=== PATIENT | female | born 1945 | race Caucasian/White ===

== ENCOUNTER 2017-04-27 08:21 | Emergency (ER) | payer OTHER ==
[2017-04-27 08:28] VITALS: BP 169/86; PULSE 72; RESP 21; TEMP 98.3; O2SAT 98
--- NOTE | 2017-04-27 09:48 | ED PDOC ---
HPI: Back Time Seen by Provider: 04/27/17 09:00 Chief Complaint (Nursing): Back Pain Chief Complaint (Provider): Back pain History Per: Patient History/Exam Limitations: no limitations Onset/Duration Of Symptoms: Days (x14) Current Symptoms Are (Timing): Still Present Previous Symptoms: Back Pain Additional Complaint(s): Love Tabor is a 71 year old female with a past medical history of hypertension and gallstones, who is presenting to the ER with complaints of lower back pain and sciatica onset 2 weeks ago. Patient reports going to urgent care 10 days ago and getting x-rays, where they recommended she see an orthopedist and pain specialist. She states she was given cortisone shots and painkillers to manage pain, but they provided no relief. She denies any fever, numbness, tingling, weakness, urinary or bowel incontinence. Patient offers no other medical complaints at this time. PMD: none provided Past Medical History Reviewed: Historical Data, Nursing Documentation, Vital Signs Vital Signs: Last Vital Signs Temp 98.3 F 04/27/17 08:27 Pulse 72 04/27/17 08:27 Resp 21 04/27/17 08:27 BP 169/86 H 04/27/17 08:27 Pulse Ox 98 04/27/17 08:30 - Medical History PMH: HTN Other PMH: gallstones - Family History Family History: States: Unknown Family Hx - Social History Current smoker - smoking cessation education provided: No Alcohol: None Drugs: Denies - Allergies Allergies/Adverse Reactions: Allergies Allergy/AdvReac Type Severity Reaction Status Date / Time No Known Allergies Allergy Verified 04/27/17 08:33 Review of Systems ROS Statement: Except As Marked, All Systems Reviewed And Found Negative Constitutional: Negative for: Fever Genitourinary Female: Negative for: Incontinence Musculoskeletal: Positive for: Back Pain (lower back, upper buttock region) Neurological: Negative for: Weakness, Numbness, Other (tingling) Physical Exam - Reviewed Nursing Documentation Reviewed: Yes Vital Signs Reviewed: Yes - Physical Exam Appears: Positive for: Non-toxic, No Acute Distress (obese) Head Exam: Positive for: ATRAUMATIC, NORMAL INSPECTION, NORMOCEPHALIC Skin: Positive for: Normal Color, Warm, Dry Eye Exam: Positive for: EOMI, Normal appearance, PERRL Neck: Positive for: Normal, Painless ROM, Supple Cardiovascular/Chest: Positive for: Regular Rate, Rhythm. Negative for: Murmur Respiratory: Positive for: Normal Breath Sounds. Negative for: Respiratory Distress Gastrointestinal/Abdominal: Positive for: Normal Exam, Soft. Negative for: Tenderness Back: Positive for: Normal Inspection. Negative for: L CVA Tenderness, R CVA Tenderness, Vertebral Tenderness Extremity: Positive for: Normal ROM. Negative for: Pedal Edema, Deformity Neurologic/Psych: Positive for: Alert, Oriented. Negative for: Motor/Sensory Deficits - Laboratory Results Result Diagrams: 04/27/17 10:01 04/27/17 10:01 - ECG O2 Sat by Pulse Oximetry: 98 (RA) Pulse Ox Interpretation: Normal Medical Decision Making Medical Decision Making: Time: 9:41 Impression: back pain, acute on chronic Plan: --CT Lumbar Spine --EKG --CMP --CBC Patient has had prior workup and is exhibiting no focal neurological deficits. Will administer pain meds and reevaluate patient. Lumbar CT: FINDINGS: VERTEBRAE: Normal lumbar curvature is appreciate without fracture or spondylolisthesis identified. Incidental minimal compression fracture of the T 11 vertebral body is suspected and is technically of indeterminate age but may be chronic. Clinically correlate. Multilevel thoracolumbar spondylosis appears mild in severity relatively diffuse. Intervertebral disc spaces are normal in height although vacuum disc changes are present at L4-5 and incidentally minimally at T10-11 and T11-12 anteriorly. Visualized prevertebral paraspinal soft tissues appear diffusely unremarkable. DISCS/SPINAL CANAL/NEURAL FORAMINA: A mildly large disc osteophyte complex and facet joint degenerative changes are seen at T11-12 resulting in a mild central canal stenosis incidentally. Limited bilateral neural foraminal stenosis likely at this level as well. No similar stenoses are present at T12-L1. L1-2: Minimal disc bulging is appreciate without stenosis. No disc herniation. Mild facet joint degenerative changes are identified symmetric without neural foraminal stenosis. L2-3: A large circumferential disc osteophyte complex is appreciated with combining with facet joint degenerative changes resulting in moderate to severe central canal stenosis and mild bilateral neural foraminal stenosis. L3-4: A severe degenerative central canal stenosis identified due to a large disc osteophyte complex combining with prominent facet joint degenerative change. Mild degenerative bilateral neural foraminal stenoses are caused by the same etiologies. L4-5: A severe degenerative central canal stenosis identified due to a large disc osteophyte complex combining with gross facet joint degenerative arthropathy with moderate degenerative bilateral neural foraminal stenoses also identified. L5-S1: A limited disc bulge is appreciated abutting the ventral thecal sac without inversion of it and without significant central stenosis resulting. Facet arthropathy appears relatively advanced but also without resulting stenosis. PARASPINAL SOFT TISSUES: Unremarkable. OTHER FINDINGS: None. IMPRESSION: Advanced degenerative central canal stenoses are severe at L3-4 and L4-5 as discussed above with accompanying mild L3-4 and moderate L4-5 neural foraminal stenoses. Degenerative central canal stenosis is moderate to severe to L2-3. No gross disc herniation is appreciated however MRI is more sensitive in evaluation of intervertebral discs. 13:00 Patient is feeling better. able to ambulate with steady gait. instructed to follow up with outpt orthopedics. Given CD and copy of report as requested for outpatient follow up. Scribe Attestation: Documented by Maia Wong, acting as a scribe for Luis Ybarra MD. Provider Scribe Attestation: All medical record entries made by the Scribe were at my direction and personally dictated by me. I have reviewed the chart and agree that the record accurately reflects my personal performance of the history, physical exam, medical decision making, and the department course for this patient. I have also personally directed, reviewed, and agree with the discharge instructions and disposition. Disposition - Clinical Impression Clinical Impression: Back pain, Herniated disc - Patient ED Disposition Is Patient to be Admitted: No Counseled Patient/Family Regarding: Studies Performed, Diagnosis, Need For Followup - Disposition Referrals: [facility] [Outside] Torey Baumann III, MD [Staff Provider] - Disposition: Routine/Home Disposition Time: 11:00 Condition: IMPROVED Additional Instructions: follow up with orthopedist as instructed in 2 days return to the ED with any worsening or concerning symptoms Instructions: Herniated Disc Forms: [employer] (Korean)
[2017-04-27 10:23] LABS: ALB/GLOB RATIO 1.3 (1.0-2.1); ALBUMIN 4.3 g/dL (3.5-5.0); ALT/SGPT 36 U/L (9-52); AST/SGOT 38 U/L (14-36); BLOOD UREA NITROGEN 14 mg/dl (7-17); CALCIUM 9.4 mg/dL (8.4-10.2); GFR AFRICAN-AMERICAN > 60; GFR NON-AFRICAN AMERICAN > 60
[2017-04-27 10:25] LABS: BASO % 0.3 % (0.0-2.0); EOS # 0.1 K/uL (0.0-0.7); EOS % 0.9 % (0.0-4.0); HEMOGLOBIN 15.3 g/dL (12.0-16.0); LYMPH # 1.9 K/uL (1.0-4.3); LYMPH % 26.6 % (20.0-40.0); MEAN CELL VOLUME 84.9 fl (81.0-99.0); MEAN CORPUSCULAR HEMOGLOBIN 28.6 pg (27.0-31.0); MEAN CORPUSCULAR HGB CONC 33.7 g/dL (33.0-37.0); MEAN PLATELET VOLUME 7.9 fl (7.2-11.7); MONO # 0.6 K/uL (0.0-0.8); NEUT # 4.5 K/uL (1.8-7.0); NEUT % 64.2 % (50.0-75.0); NRBC % 0.1 % (0.0-0.0); RBC 5.35 Mil/uL (3.80-5.20)
--- NOTE | 2017-04-27 11:53 | CT ---
PROCEDURE: CT Lumbar Spine without contrast HISTORY: back pain COMPARISON: None. TECHNIQUE: Axial computed tomography images were obtained of the lumbar spine without the use of intravenous contrast. Coronal and sagittal reformatted images were created and reviewed. Radiation dose: Total exam DLP = 1538.13 mGy-cm. This CT exam was performed using one or more of the following dose reduction techniques: Automated exposure control, adjustment of the mA and/or kV according to patient size, and/or use of iterative reconstruction technique. FINDINGS: VERTEBRAE: Normal lumbar curvature is appreciate without fracture or spondylolisthesis identified. Incidental minimal compression fracture of the T 11 vertebral body is suspected and is technically of indeterminate age but may be chronic. Clinically correlate. Multilevel thoracolumbar spondylosis appears mild in severity relatively diffuse. Intervertebral disc spaces are normal in height although vacuum disc changes are present at L4-5 and incidentally minimally at T10-11 and T11-12 anteriorly. Visualized prevertebral paraspinal soft tissues appear diffusely unremarkable. DISCS/SPINAL CANAL/NEURAL FORAMINA: A mildly large disc osteophyte complex and facet joint degenerative changes are seen at T11-12 resulting in a mild central canal stenosis incidentally. Limited bilateral neural foraminal stenosis likely at this level as well. No similar stenoses are present at T12-L1. L1-2: Minimal disc bulging is appreciate without stenosis. No disc herniation. Mild facet joint degenerative changes are identified symmetric without neural foraminal stenosis. L2-3: A large circumferential disc osteophyte complex is appreciated with combining with facet joint degenerative changes resulting in moderate to severe central canal stenosis and mild bilateral neural foraminal stenosis. L3-4: A severe degenerative central canal stenosis identified due to a large disc osteophyte complex combining with prominent facet joint degenerative change. Mild degenerative bilateral neural foraminal stenoses are caused by the same etiologies. L4-5: A severe degenerative central canal stenosis identified due to a large disc osteophyte complex combining with gross facet joint degenerative arthropathy with moderate degenerative bilateral neural foraminal stenoses also identified. L5-S1: A limited disc bulge is appreciated abutting the ventral thecal sac without inversion of it and without significant central stenosis resulting. Facet arthropathy appears relatively advanced but also without resulting stenosis. PARASPINAL SOFT TISSUES: Unremarkable. OTHER FINDINGS: None. IMPRESSION: Advanced degenerative central canal stenoses are severe at L3-4 and L4-5 as discussed above with accompanying mild L3-4 and moderate L4-5 neural foraminal stenoses. Degenerative central canal stenosis is moderate to severe to L2-3. No gross disc herniation is appreciated however MRI is more sensitive in evaluation of intervertebral discs.
--- NOTE | 2017-04-27 14:43 | CARD ---
APPROVED REPORT EKG Measurement Heart [id number] <Conclusion> Normal sinus rhythm Left axis deviation Abnormal ECG
== END 2017-04-27 13:26 | disposition home or self-care (01) ==
LOC: H.ER 08:21
DX: M54.9 Dorsalgia, unspecified (principal); M51.27 Other intervertebral disc displacement, lumbosacral region; G89.29 Other chronic pain; I10 Essential (primary) hypertension; M48.061 Spinal stenosis, lumbar region without neurogenic claudication
CPT/HCPCS: 72131; 80053; 85025; 93005; 96372; 99282; J1885

== ENCOUNTER 2018-04-06 10:11 | Emergency (ER) | payer SELFPAY ==
[2018-04-06 10:24] VITALS: BP 163/83; RESP 17; TEMP 98.3; O2SAT 95
--- NOTE | 2018-04-06 11:38 | ED PDOC ---
HPI: Chest Pain Time Seen by Provider: 04/06/18 10:42 Chief Complaint (Nursing): Chest Pain Chief Complaint (Provider): Chest pain History Per: Patient Additional Complaint(s): 72 yo female, PMH of HTN, Pt to ED for evaluation of epigastric abdominal pain, radiating to her chest x 2 days now. Denies any palpitations, diaphoresis, shortness of breathe, or headache :interpreter deaf [id number]. Pt reports she takes her BP at home and sometimes she notes it to be elevated when she is in pain. Past Medical History Reviewed: Nursing Documentation, Vital Signs Vital Signs: Last Vital Signs Temp 98.3 F 04/06/18 10:23 Pulse 70 04/06/18 10:23 Resp 17 04/06/18 10:23 BP 163/83 H 04/06/18 10:23 Pulse Ox 95 04/06/18 10:23 - Medical History PMH: HTN - Surgical History Surgical History: No Surg Hx - Family History Family History: States: Unknown Family Hx - Living Arrangements Living Arrangements: With Family - Social History Alcohol: Social Drugs: Denies - Home Medications Home Medications: Ambulatory Orders Medication Instructions Recorded Famotidine [Pepcid] 20 mg PO DAILY #20 tab 04/06/18 - Allergies Allergies/Adverse Reactions: Allergies Allergy/AdvReac Type Severity Reaction Status Date / Time No Known Allergies Allergy Verified 04/06/18 10:57 ROSA Risk Score for UA/NSTEMI - ROSA Risk Score Age > 64: NO 3 or more CAD Risk Factors: NO Known CAD (Stenosis greater than 50%): NO Aspirin use in past 7 days: NO Severe Angina: NO EKG ST changes greater than 0.5mm: NO Positive Cardiac Marker: NO ROSA Score: 0 Risk %: 5% Wells Criteria for PE - Wells Criteria for Pulmonary Embolism Clinical Signs and Symptoms of DVT: No P.E is #1 Diagnosis, or Equally Likely: No Heart Rate >100: No Immobilization at least 3 days;Surgery previous 4 weeks: No Previous, objectively diagnosed PE or DVT: No Hemoptysis: No Malignancy w/treatment within 6 months, or palliative: No Total Score: 0 Review of Systems ROS Statement: Except As Marked, All Systems Reviewed And Found Negative Cardiovascular: Positive for: Chest Pain Gastrointestinal: Positive for: Abdominal Pain Physical Exam - Reviewed Nursing Documentation Reviewed: Yes Vital Signs Reviewed: Yes - Physical Exam Appears: Positive for: Well, Non-toxic, No Acute Distress Head Exam: Positive for: ATRAUMATIC, NORMAL INSPECTION, NORMOCEPHALIC Skin: Positive for: Normal Color, Warm, DRY Eye Exam: Positive for: EOMI, Normal appearance, PERRL ENT: Positive for: Normal ENT Inspection Neck: Positive for: Normal, Painless ROM Cardiovascular/Chest: Positive for: Regular Rate, Rhythm Respiratory: Positive for: CNT, Normal Breath Sounds Gastrointestinal/Abdominal: Positive for: Normal Exam, Soft Back: Positive for: Normal Inspection Extremity: Positive for: Normal ROM Neurologic/Psych: Positive for: Alert, Oriented - Laboratory Results Result Diagrams: 04/06/18 12:18 04/06/18 12:18 - ECG O2 Sat by Pulse Oximetry: 95 Medical Decision Making Medical Decision Making: EKG interpreted and cleared by ED MD Pt placed on environmental monitoring specialist, vitals stable Labs resulted and reviewed with Pt who demonstarted full understanding. Pt received Pepcid for her symptoms and reports relif obtained. Pt on re-eval with no complaints of chest pain or SOB. Pt asking to go home, reports she will follow up with clinic. Pt advised to return to ED if at anytime condition worsens Disposition - Clinical Impression Clinical Impression: Chest pain, Gastritis - Patient ED Disposition Is Patient to be Admitted: No - Disposition Referrals: Danny Benson MD [Staff Provider] - Aroldo Herron MD [Staff Provider] - Disposition: Routine/Home Disposition Time: 14:00 Condition: STABLE Prescriptions: Famotidine [Pepcid] 20 mg PO DAILY #20 tab Instructions: Gastritis Forms: [employer] (Nepali)
[2018-04-06 12:28] LABS: BASO % 0.8 % (0.0-2.0); EOS # 0.1 K/uL (0.0-0.7); EOS % 2.1 % (0.0-4.0); HEMOGLOBIN 14.6 g/dL (12.0-16.0); LYMPH # 1.8 K/uL (1.0-4.3); LYMPH % 31.5 % (20.0-40.0); MEAN CELL VOLUME 86.8 fl (81.0-99.0); MEAN CORPUSCULAR HEMOGLOBIN 28.4 pg (27.0-31.0); MEAN CORPUSCULAR HGB CONC 32.8 g/dL (33.0-37.0); MEAN PLATELET VOLUME 8.2 fl (7.2-11.7); MONO # 0.4 K/uL (0.0-0.8); MONO % 7.4 % (0.0-10.0); NEUT # 3.3 K/uL (1.8-7.0); NEUT % 58.2 % (50.0-75.0); NRBC % 0.1 % (0.0-0.0); RBC 5.13 Mil/uL (3.80-5.20); RED CELL DISTRIBUTION WIDTH 13.1 % (11.5-14.5); WHITE BLOOD COUNT 5.7 K/uL (4.8-10.8)
[2018-04-06 12:33] LABS: PROTHROMBIN TIME 11.1 Seconds (9.8-13.1)
[2018-04-06 12:36] LABS: PARTIAL THROMBOPLASTIN TIME 34.9 Seconds (25.6-37.1); SQUAMOUS EPITHIAL 8 /hpf (0-5); URINE BACTERIA RARE (<OCC); URINE BILIRUBIN NEGATIVE (NEGATIVE); URINE BLOOD NEGATIVE (NEGATIVE); URINE CLARITY CLOUDY (Clear); URINE COLOR YELLOW (YELLOW); URINE GLUCOSE (UA) NEG (NEGATIVE); URINE LEUKOCYTE ESTERASE SMALL Leu/uL (Negative); URINE PROTEIN NEGATIVE (NEGATIVE); URINE UROBILINOGEN 0.2-1.0 mg/dL (0.2-1.0)
[2018-04-06 12:50] LABS: ALB/GLOB RATIO 1.5 (1.0-2.1); ALBUMIN 4.7 g/dL (3.5-5.0); ALT/SGPT 27 U/L (9-52); AST/SGOT 38 U/L (14-36); BLOOD UREA NITROGEN 19 mg/dl (7-17); CALCIUM 9.6 mg/dL (8.4-10.2); GFR NON-AFRICAN AMERICAN > 60
[2018-04-06 14:26] VITALS: PULSE 63
--- NOTE | 2018-04-06 14:32 | RAD ---
Date of service: 04/06/2018 PROCEDURE: CHEST RADIOGRAPH, 1 VIEW HISTORY: Chest pain. COMPARISON: 10/31/2017. FINDINGS: LUNGS: Clear. PLEURA: No pneumothorax or pleural fluid seen. CARDIOVASCULAR: No aortic atherosclerotic calcification present. Normal. OSSEOUS STRUCTURES: No significant abnormalities. VISUALIZED UPPER ABDOMEN: Normal. OTHER FINDINGS: None. IMPRESSION: No active disease. No acute/significant interval changes.
--- NOTE | 2018-04-06 23:49 | CARD ---
APPROVED REPORT Date of service: 04/06/2018 EKG Measurement Heart [id number] <Conclusion> Normal sinus rhythm Left axis deviation Abnormal ECG
== END 2018-04-06 15:45 | disposition home or self-care (01) ==
LOC: H.ER 10:11
DX: R07.89 Other chest pain (principal); K29.70 Gastritis, unspecified, without bleeding; I10 Essential (primary) hypertension

== ENCOUNTER 2018-06-22 10:47 | Observation (INO) | payer SELFPAY ==
[2018-06-22 10:58] VITALS: BMI 37.3
[2018-06-22 12:12] LABS: BASO % 0.7 % (0.0-2.0); EOS # 0.1 K/uL (0.0-0.7); EOS % 2.6 % (0.0-4.0); HEMOGLOBIN 13.1 g/dL (12.0-16.0); LYMPH % 35.3 % (20.0-40.0); MEAN CELL VOLUME 86.7 fl (81.0-99.0); MEAN CORPUSCULAR HEMOGLOBIN 28.9 pg (27.0-31.0); MEAN CORPUSCULAR HGB CONC 33.3 g/dL (33.0-37.0); MEAN PLATELET VOLUME 7.7 fl (7.2-11.7); MONO # 0.5 K/uL (0.0-0.8); MONO % 8.2 % (0.0-10.0); NEUT % 53.2 % (50.0-75.0); RBC 4.54 Mil/uL (3.80-5.20); RED CELL DISTRIBUTION WIDTH 13.2 % (11.5-14.5); WHITE BLOOD COUNT 5.6 K/uL (4.8-10.8)
[2018-06-22 12:20] LABS: PROTHROMBIN TIME 11.4 Seconds (9.8-13.1)
[2018-06-22 12:23] LABS: PARTIAL THROMBOPLASTIN TIME 36.3 Seconds (25.6-37.1)
--- NOTE | 2018-06-22 12:28 | ED PDOC ---
Syncope/Near Syncope/Dizziness Time Seen by Provider: 06/22/18 11:01 Chief Complaint (Nursing): Syncope Chief Complaint (Provider): Syncope History Per: Patient History/Exam Limitations: no limitations Onset/Duration Of Symptoms: Hrs Additional Complaint(s): 73 y/o female presents to the ED due to syncope. Patient states she had a syncope episode today after her doctor visit. Patient report when she fainted EMS was called and came here. She states she has been feeling dizzy for the last past 2 days and it progressively worsen when walking. Patient denies chest pain, headache, weakness, or any numbness to her face. PMD: [facility] Past Medical History Reviewed: Historical Data, Nursing Documentation, Vital Signs Vital Signs: Last Vital Signs Temp 97 F L 06/22/18 10:57 Pulse 75 06/22/18 10:57 Resp 16 06/22/18 10:57 BP 186/101 H 06/22/18 10:57 Pulse Ox 96 06/22/18 10:57 Primary Care Provider: Doctor,Conversion - Medical History PMH: HTN, Hypercholesterolemia - Family History Family History: States: Unknown Family Hx - Home Medications Home Medications: Ambulatory Orders Medication Instructions Recorded Famotidine [Pepcid] 20 mg PO DAILY #20 tab 04/06/18 - Allergies Allergies/Adverse Reactions: Allergies Allergy/AdvReac Type Severity Reaction Status Date / Time No Known Allergies Allergy Verified 06/22/18 10:57 Review of Systems ROS Statement: Except As Marked, All Systems Reviewed And Found Negative Cardiovascular: Negative for: Chest Pain Neurological: Positive for: Dizziness. Negative for: Weakness, Numbness, Headache Physical Exam - Reviewed Nursing Documentation Reviewed: Yes Vital Signs Reviewed: Yes - Physical Exam Appears: Positive for: Well, Non-toxic, No Acute Distress Head Exam: Positive for: ATRAUMATIC, NORMAL INSPECTION, NORMOCEPHALIC Skin: Positive for: Normal Color, Warm, DRY Eye Exam: Positive for: EOMI, Normal appearance, PERRL ENT: Positive for: Normal ENT Inspection Neck: Positive for: Normal, Painless ROM, Supple Cardiovascular/Chest: Positive for: Regular Rate, Rhythm. Negative for: Murmur Respiratory: Positive for: Normal Breath Sounds. Negative for: Wheezing Gastrointestinal/Abdominal: Positive for: Normal Exam, Soft. Negative for: Tenderness Back: Positive for: Normal Inspection. Negative for: L CVA Tenderness, R CVA Tenderness Extremity: Positive for: Normal ROM Neurological/Psych: Positive for: Awake, Alert, Normal Tone, Oriented (x3). Negative for: Motor/Sensory Deficits - Laboratory Results Result Diagrams: 06/22/18 12:00 06/22/18 12:00 Lab Results: PT 11.4 Seconds (9.8-13.1) 06/22/18 12:00 INR 1.0 06/22/18 12:00 APTT 36.3 Seconds (25.6-37.1) 06/22/18 12:00 - ECG O2 Sat by Pulse Oximetry: 96 Medical Decision Making Medical Decision Making: Time: 1142 Implementation Coordinator #: [id number] Initial Impression: Initial Plan: -CT -EKG -BNP -CMP -Magnesium -Phosphorous -Troponin -CBC -Partial thromboplastin -Prothrombin -Chest x-ray -Urinalysis -Xanax 0.25mg PO 12:00 Patient states she gets very nervous for CT, will give Xanax. [address] unremarkable Pt to be admitted under the hospitalist. She has been informed and agrees with the plan. Scribe Attestation: Documented by Georgina Pack, acting as a scribe for Sameera Gatica Provider Scribe Attestation: All medical record entries made by the Scribe were at my direction and personally dictated by me. I have reviewed the chart and agree that the record accurately reflects my personal performance of the history, physical exam, medical decision making, and the department course for this patient. I have also personally directed, reviewed, and agree with the discharge instructions and disposition. Disposition - Clinical Impression Clinical Impression: Syncope and collapse - Disposition Disposition Time: 14:00 Condition: STABLE Forms: [employer] (Albanian)
[2018-06-22 12:31] LABS: ALB/GLOB RATIO 1.5 (1.0-2.1); ALBUMIN 4.1 g/dL (3.5-5.0); ALT/SGPT 28 U/L (9-52); AST/SGOT 33 U/L (14-36); BLOOD UREA NITROGEN 16 mg/dl (7-17); CALCIUM 8.6 mg/dL (8.4-10.2); GFR NON-AFRICAN AMERICAN > 60
[2018-06-22 12:38] LABS: B-TYPE NATRIURETIC PEPTIDE 112 pg/ml (0-900)
--- NOTE | 2018-06-22 13:00 | CT ---
Date of service: 06/22/2018 PROCEDURE: CT HEAD WITHOUT CONTRAST. HISTORY: syncope COMPARISON: None available. TECHNIQUE: Axial computed tomography images were obtained through the head/brain without intravenous contrast. Radiation dose: Total exam DLP = 789.18 mGy-cm. This CT exam was performed using one or more of the following dose reduction techniques: Automated exposure control, adjustment of the mA and/or kV according to patient size, and/or use of iterative reconstruction technique. FINDINGS: HEMORRHAGE: No intracranial hemorrhage. BRAIN: Small chronic infarct left parietal occipital junction. Limited diffuse cerebral atrophy and chronic microangiopathy are manifest by minimal expansion of the ventricular sulcal and cisternal spaces and minimal periventricular white matter lucency. No mass effect. No suspicious extra-axial collection identified. Midline brain and appears normal as well as posterior fossa contents, including brainstem. VENTRICLES: Unremarkable. No hydrocephalus. CALVARIUM: Unremarkable. PARANASAL SINUSES: Unremarkable as visualized. No significant inflammatory changes. MASTOID AIR CELLS: Unremarkable as visualized. No inflammatory changes. OTHER FINDINGS: None. 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
--- NOTE | 2018-06-22 13:31 | CARD ---
APPROVED REPORT Date of service: 06/22/2018 EKG Measurement Heart [id number] <Conclusion> Sinus rhythm with occasional premature ventricular complexes Otherwise normal ECG
--- NOTE | 2018-06-22 15:06 | RAD ---
Date of service: 06/22/2018 HISTORY: Possible admission. COMPARISON: 04/06/2018. FINDINGS: LUNGS: No active pulmonary disease. PLEURA: No significant pleural effusion identified, no pneumothorax apparent. CARDIOVASCULAR: Atherosclerotic calcifications identified primarily aortic arch. No radiographic findings to suggest acute or significant cardiovascular disease. OSSEOUS STRUCTURES: No significant abnormalities. VISUALIZED UPPER ABDOMEN: Normal. OTHER FINDINGS: None. IMPRESSION: No active disease. No significant interval change compared to the prior examination(s).
--- NOTE | 2018-06-22 15:33 | CP.PCM.HP ---
<Dorie Rodriguez - Last Filed: 06/22/18 15:48> History of Present Illness - History of Present Illness History of Present Illness: 73-year-old female with PMH of HTN presents from [facility] after a pre-syncopal episode. She was sitting in the examination room alone and began to feel "foggy" - no loss of consciousness, no dizziness, no diaphoresis, no headache, no palpitations, no change in vision, no weakness, no tingling/numbness. She admits that the fogginess has been present since summer, last only a few seconds and mostly occur when she is walking and stops at an intersection. Currently no complaints. PMD: HNC PMH: HTN, prediabetes Meds: as below Allergy: NKDA FHx: denies Surgical Hx: tonsilectomy at 17 yo Social: denies tobacco and illicit drugs, social etoh; was a teacher in [employer] Present on Admission - Present on Admission Any Indicators Present on Admission: No Review of Systems - Review of Systems Review of Systems: all other systems reviewed and negative unles snoted in HPI. Past Patient History - Past Social History Smoking Status: Never Smoked - CARDIAC Hx Hypercholesterolemia: Yes Hx Hypertension: Yes - ENDOCRINE/METABOLIC Other/Comment: pre- dm - PSYCHIATRIC Hx Substance Use: No Meds Allergies/Adverse Reactions: Allergies Allergy/AdvReac Type Severity Reaction Status Date / Time No Known Allergies Allergy Verified 06/22/18 10:57 Physical Exam - Constitutional Appears: Non-toxic, No Acute Distress, Younger Than Stated Age - Eye Exam Eye Exam: Normal appearance - ENT Exam ENT Exam: Mucous Membranes Moist - Respiratory Exam Respiratory Exam: Clear to Auscultation Bilateral, NORMAL BREATHING PATTERN. absent: Respiratory Distress - Cardiovascular Exam Cardiovascular Exam: REGULAR RHYTHM - GI/Abdominal Exam GI & Abdominal Exam: Normal Bowel Sounds, Soft. absent: Tenderness - Rectal Exam Rectal Exam: NORMAL INSPECTION - Extremities Exam Extremities exam: Positive for: normal inspection - Neurological Exam Neurological exam: Alert, CN II-XII Intact, Normal Gait, Oriented x3 - Psychiatric Exam Psychiatric exam: Normal Affect, Normal Mood - Skin Skin Exam: Normal Color, Warm Results - Vital Signs Recent Vital Signs: Last Vital Signs Temp 97 F L 06/22/18 10:57 Pulse 75 06/22/18 10:57 Resp 16 06/22/18 10:57 BP 186/101 H 06/22/18 10:57 Pulse Ox 96 06/22/18 14:47 - Labs Result Diagrams: 06/22/18 12:00 06/22/18 12:00 Labs: Laboratory Results - last 24 hr 06/22/18 06/22/18 06/22/18 10:58 12:00 12:00 WBC 5.6 RBC 4.54 Hgb 13.1 Hct 39.3 MCV 86.7 MCH 28.9 MCHC 33.3 RDW 13.2 Plt Count 172 MPV 7.7 Neut % (Auto) 53.2 Lymph % (Auto) 35.3 Cochran % (Auto) 8.2 Eos % (Auto) 2.6 Baso % (Auto) 0.7 Neut # (Auto) 3.0 Lymph # (Auto) 2.0 Cochran # (Auto) 0.5 Eos # (Auto) 0.1 Baso # (Auto) 0.0 PT INR APTT Sodium 138 Potassium 4.0 Chloride 105 Carbon Dioxide 27 Anion Gap 10 BUN 16 Creatinine 0.6 L Est GFR ( Amer) > 60 Est GFR (Non-Af Amer) > 60 POC Glucose (mg/dL) 117 H Random Glucose 105 Calcium 8.6 Phosphorus 3.1 Magnesium 2.1 Total Bilirubin 0.7 AST 33 ALT 28 Alkaline Phosphatase 76 Troponin I < 0.0120 NT-Pro-B Natriuret Pep 112 Total Protein 6.8 Albumin 4.1 Globulin 2.7 Albumin/Globulin Ratio 1.5 06/22/18 12:00 WBC RBC Hgb Hct MCV MCH MCHC RDW Plt Count MPV Neut % (Auto) Lymph % (Auto) Cochran % (Auto) Eos % (Auto) Baso % (Auto) Neut # (Auto) Lymph # (Auto) Cochran # (Auto) Eos # (Auto) Baso # (Auto) PT 11.4 INR 1.0 APTT 36.3 Sodium Potassium Chloride Carbon Dioxide Anion Gap BUN Creatinine Est GFR ( Amer) Est GFR (Non-Af Amer) POC Glucose (mg/dL) Random Glucose Calcium Phosphorus Magnesium Total Bilirubin AST ALT Alkaline Phosphatase Troponin I NT-Pro-B Natriuret Pep Total Protein Albumin Globulin Albumin/Globulin Ratio Assessment & Plan - Assessment and Plan (Free Text) Assessment: 73-year-old female with PMH of HTN presents from [facility] after a pre-syncopal episode. She was sitting in the examination room alone and began to feel "foggy" - no loss of consciousness, no dizziness, no diaphoresis, no headache, no palpitations, no change in vision, no weakness, no tingling/numbness. 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3 RDW 13.2 Plt Count 172 MPV 7.7 Neut % (Auto) 53.2 Lymph % (Auto) 35.3 Cochran % (Auto) 8.2 Eos % (Auto) 2.6 Baso % (Auto) 0.7 Neut # (Auto) 3.0 Lymph # (Auto) 2.0 Cochran # (Auto) 0.5 Eos # (Auto) 0.1 Baso # (Auto) 0.0 PT INR APTT Sodium 138 Potassium 4.0 Chloride 105 Carbon Dioxide 27 Anion Gap 10 BUN 16 Creatinine 0.6 L Est GFR ( Amer) > 60 Est GFR (Non-Af Amer) > 60 POC Glucose (mg/dL) 117 H Random Glucose 105 Calcium 8.6 Phosphorus 3.1 Magnesium 2.1 Total Bilirubin 0.7 AST 33 ALT 28 Alkaline Phosphatase 76 Troponin I < 0.0120 NT-Pro-B Natriuret Pep 112 Total Protein 6.8 Albumin 4.1 Globulin 2.7 Albumin/Globulin Ratio 1.5 06/22/18 12:00 WBC RBC Hgb Hct MCV MCH MCHC RDW Plt Count MPV Neut % (Auto) Lymph % (Auto) Cochran % (Auto) Eos % (Auto) Baso % (Auto) Neut # (Auto) Lymph # (Auto) Cochran # (Auto) Eos # (Auto) Baso # (Auto) PT 11.4 INR 1.0 APTT 36.3 Sodium Potassium Chloride Carbon Dioxide Anion Gap BUN Creatinine Est GFR ( Amer) Est GFR (Non-Af Amer) POC Glucose (mg/dL) Random Glucose Calcium Phosphorus Magnesium Total Bilirubin AST ALT Alkaline Phosphatase Troponin I NT-Pro-B Natriuret Pep Total Protein Albumin Globulin Albumin/Globulin Ratio Attending/Attestation - Attestation I have personally seen and examined this patient.: Yes I have fully participated in the care of the patient.: Yes I have reviewed all pertinent clinical information: Yes Notes (Text): 06/22/18 19:20 Agree with findings and plan as above.
--- NOTE | 2018-06-22 18:29 | US ---
Date of service: 06/22/2018 PROCEDURE: Duplex ultrasound of the carotid and vertebral arteries. HISTORY: presyncope/syncope COMPARISON: None available. TECHNIQUE: Grayscale and duplex Doppler evaluation of the cervical carotid and vertebral arteries were performed. The common carotid, carotid bifurcations and cervical ICA and proximal ECA were evaluated. The vertebral arteries were evaluated for gross patency and direction. FINDINGS: RIGHT CAROTID ARTERIES: Common Carotid Artery: Maximal flow velocity of 72.9 cm/s. Carotid Bifurcation: Intimal thickening is present Internal Carotid Artery:Heterogeneous plaque formation. Maximal flow velocity of 57.5 cm/s. External Carotid Artery (proximal branches): Maximal flow velocity of 61.0 cm/s. ICA/CCA Ratio: 1.3 LEFT CAROTID ARTERIES: Common Carotid Artery: Maximal flow velocity of 68.6 cm/s. Carotid Bifurcation: Intimal thickening is present Internal Carotid Artery:Heterogeneous plaque formation. Maximal flow velocity of 55.3 cm/s. External Carotid Artery (proximal branches): Maximal flow velocity of 73.3 cm/s. ICA/CCA Ratio: 1.0 VERTEBRAL ARTERIES: Right Vertebral Artery: Patent. Antegrade flow. Left Vertebral Artery: Patent. Antegrade flow. OTHER FINDINGS: Atherosclerotic calcification present. Morphologically, unremarkable lymph node(s) interposed between the left common carotid artery in the sternocleidomastoid 1 x 1.2 cm. IMPRESSION: Right ICA degree of stenosis: Less than 50% Left ICA degree of stenosis: Less than 50% Reference Internal Carotid Artery (ICA) Peak Systolic Velocity (PSV) for above: 1. Less than 50% stenosis less than 125 cm/s peak systolic velocity 2. 50-69% stenosis 125-230cm/s peak systolic velocity 3. Greater than 70% but less than near occlusion greater than 230 cm/s peak systolic velocity
[2018-06-23 06:29] LABS: HEMOGLOBIN 13.8 g/dL (12.0-16.0); MEAN CELL VOLUME 86.8 fl (81.0-99.0); MEAN CORPUSCULAR HEMOGLOBIN 28.7 pg (27.0-31.0); RBC 4.81 Mil/uL (3.80-5.20); RED CELL DISTRIBUTION WIDTH 13.1 % (11.5-14.5); WHITE BLOOD COUNT 5.8 K/uL (4.8-10.8)
[2018-06-23 06:38] LABS: BLOOD UREA NITROGEN 14 mg/dl (7-17); CALCIUM 8.6 mg/dL (8.4-10.2); GFR NON-AFRICAN AMERICAN > 60
[2018-06-23 08:31] VITALS: BP 137/87; RESP 20; TEMP 97.7; O2SAT 96
[2018-06-23 08:41] VITALS: PULSE 64
[2018-06-23] MEDS ORDERED: Metoprolol Succinate 50 mg XL Tab PO SCH (09:00)
--- NOTE | 2018-06-23 09:56 | CP.PCM.PN ---
Subjective - Date & Time of Evaluation Date of Evaluation: 06/23/18 Time of Evaluation: 09:05 Objective - Vital Signs/Intake and Output Vital Signs (last 24 hours): Temp Pulse Resp BP Pulse Ox 97.7 F 64 20 137/87 96 06/23/18 08:30 06/23/18 08:41 06/23/18 08:30 06/23/18 08:41 06/23/18 08:30 - Medications Medications: Current Medications Acetaminophen (Tylenol 325mg Tab) 650 mg PO Q6 PRN PRN Reason: Pain, Mild (1-3) Aspirin (Ecotrin) 81 mg PO DAILY [facility] Last Admin: 06/23/18 08:41 Dose: 81 mg Atorvastatin Calcium (Lipitor) 40 mg PO HS [facility] Last Admin: 06/22/18 22:43 Dose: 40 mg Hydrochlorothiazide (Microzide) 12.5 mg PO DAILY [facility] Last Admin: 06/23/18 08:41 Dose: 12.5 mg Losartan Potassium (Cozaar) 100 mg PO DAILY [facility] Last Admin: 06/23/18 08:40 Dose: 100 mg Metoprolol Succinate (Toprol Xl) 50 mg PO DAILY [facility] Last Admin: 06/23/18 08:41 Dose: 50 mg - Labs Labs: 06/23/18 05:04 06/23/18 05:04 PT 11.4 Seconds (9.8-13.1) 06/22/18 12:00 INR 1.0 06/22/18 12:00 APTT 36.3 Seconds (25.6-37.1) 06/22/18 12:00
[2018-06-23 10:38] LABS: SQUAMOUS EPITHIAL 1 /hpf (0-5); URINE BILIRUBIN NEGATIVE (NEGATIVE); URINE BLOOD NEGATIVE (NEGATIVE); URINE CLARITY SLIGHTY-CLOUDY (Clear); URINE COLOR YELLOW (YELLOW); URINE GLUCOSE (UA) NEG (NEGATIVE); URINE LEUKOCYTE ESTERASE MOD Leu/uL (Negative); URINE PROTEIN NEGATIVE (NEGATIVE); URINE UROBILINOGEN 0.2-1.0 mg/dL (0.2-1.0)
[2018-06-23 11:46] LABS: URINE BACTERIA FEW (<OCC)
--- NOTE | 2018-06-23 13:08 | CARD ---
APPROVED REPORT Date of service: 06/23/2018 EXAM: Two-dimensional and M-mode echocardiogram with Doppler and color Doppler. Other Information Quality : AverageRhythm : NSR Technically limited study due to Poor apical window INDICATION Syncope 2D DIMENSIONS IVSd1.32 (0.7-1.1cm)LVDd4.61 (3.9-5.9cm) LVOT Diameter2.26 (1.8-2.4cm)PWd1.11 (0.7-1.1cm) IVSs1.56 (0.8-1.2cm)LVDs2.75 (2.5-4.0cm) FS (%) 40.3 %PWs1.48 (0.8-1.2cm) M-Mode DIMENSIONS Left Atrium (MM)5.21 (2.5-4.0cm)IVSd1.18 (0.7-1.1cm) Aortic Root2.97 (2.2-3.7cm)LVDd5.38 (4.0-5.6cm) Aortic Cusp Exc.1.82 (1.5-2.0cm)PWd1.32 (0.7-1.1cm) IVSs2.03 cmFS (%) 46 % LVDs2.91 (2.0-3.8cm)PWs1.91 cm Aortic Valve AoV Peak Qwbjifwz911.1cm/sAoV VTI21.1cmAO Peak GR.6mmHg LVOT Peak Daseecoj16.2cm/sLVOT VTI17.26cmAO Mean GR.3mmHg ROMÁN (VMAX)1.46gf8AGD (VTI)1.70cm2 Mitral Valve MV E Ayduehpr99.4cm/sMV DECEL WUCO326qyMI A Gqouxfno85.8cm/s MV GCU132ymO/A ratio0.5MVA (PHT)1.72cm2 TDI Lateral E' Peak V6.11cm/sMedial E' Peak V5.46cm/sE/Lateral E'6.0 E/Medial E'6.7 LEFT VENTRICLE The left ventricle is normal size. There is normal left ventricular wall thickness. The left ventricular systolic function is normal. The estimated ejection fraction is 55-60% No regional wall motion abnormalities noted.. Transmitral Doppler flow pattern is Grade I-abnormal relaxation pattern. No left ventricle thrombus noted on this study. There is no ventricular septal defect visualized. There is no left ventricular aneurysm. There is no mass noted in the left ventricle. RIGHT VENTRICLE The right ventricle is normal size. There is normal right ventricular wall thickness. The right ventricular systolic function is normal. ATRIA The left atrium is mild to moderately dilated. The right atrium size is normal. The interatrial septum is intact with no evidence for an atrial septal defect. AORTIC VALVE The aortic valve is normal in structure. No aortic regurgitation is present. There is no aortic valvular stenosis. There is no aortic valvular vegetation. MITRAL VALVE The mitral valve is normal in structure. There is no evidence of mitral valve prolapse. There is no mitral valve stenosis. There is no mitral valve regurgitation noted. TRICUSPID VALVE The tricuspid valve is normal in structure. There is trace tricuspid valve regurgitation noted. RVSP is calculated at less than 20 mm Hg. There is no tricuspid valve prolapse or vegetation. There is no tricuspid valve stenosis. PULMONIC VALVE The pulmonary valve is normal in structure. There is no pulmonic valvular regurgitation. There is no pulmonic valvular stenosis. GREAT VESSELS The aortic root is normal in size. The ascending aorta is normal in size. The pulmonary artery is normal. The IVC is normal in size and collapses >50% with inspiration. PERICARDIAL EFFUSION There is no pericardial effusion. There is no pleural effusion. <Conclusion> The estimated ejection fraction is 55-60% Transmitral Doppler flow pattern is Grade I-abnormal relaxation pattern. The left atrium is mild to moderately dilated. There is trace tricuspid valve regurgitation noted. RVSP is calculated at less than 20 mm Hg.
--- NOTE | 2018-06-23 13:26 | CP.PCM.DIS ---
Provider - Provider Date of Admission: 06/22/18 14:12 Attending physician: Latricia Candelaria DO Time Spent in preparation of Discharge (in minutes): 30 Diagnosis - Discharge Diagnosis (1) Syncope Status: Resolved Priority: Low (2) Hypertension Status: Chronic Priority: Low Hospital Course - Lab Results Lab Results: Most Recent Lab Values WBC 5.8 K/uL (4.8-10.8) 06/23/18 05:04 RBC 4.81 Mil/uL (3.80-5.20) 06/23/18 05:04 Hgb 13.8 g/dL (12.0-16.0) 06/23/18 05:04 Hct 41.8 % (34.0-47.0) 06/23/18 05:04 MCV 86.8 fl (81.0-99.0) 06/23/18 05:04 MCH 28.7 pg (27.0-31.0) 06/23/18 05:04 MCHC 33.0 g/dL (33.0-37.0) 06/23/18 05:04 RDW 13.1 % (11.5-14.5) 06/23/18 05:04 Plt Count 177 K/uL (130-400) 06/23/18 05:04 MPV 7.7 fl (7.2-11.7) 06/22/18 12:00 Neut % (Auto) 53.2 % (50.0-75.0) 06/22/18 12:00 Lymph % (Auto) 35.3 % (20.0-40.0) 06/22/18 12:00 Ada % (Auto) 8.2 % (0.0-10.0) 06/22/18 12:00 Eos % (Auto) 2.6 % (0.0-4.0) 06/22/18 12:00 Baso % (Auto) 0.7 % (0.0-2.0) 06/22/18 12:00 Neut # (Auto) 3.0 K/uL (1.8-7.0) 06/22/18 12:00 Lymph # (Auto) 2.0 K/uL (1.0-4.3) 06/22/18 12:00 Ada # (Auto) 0.5 K/uL (0.0-0.8) 06/22/18 12:00 Eos # (Auto) 0.1 K/uL (0.0-0.7) 06/22/18 12:00 Baso # (Auto) 0.0 K/uL (0.0-0.2) 06/22/18 12:00 PT 11.4 Seconds (9.8-13.1) 06/22/18 12:00 INR 1.0 06/22/18 12:00 APTT 36.3 Seconds (25.6-37.1) 06/22/18 12:00 Sodium 138 mmol/l (132-148) 06/23/18 05:04 Potassium 3.9 MMOL/L (3.6-5.0) 06/23/18 05:04 Chloride 104 mmol/L (98-107) 06/23/18 05:04 Carbon Dioxide 24 mmol/L (22-30) 06/23/18 05:04 Anion Gap 14 (10-20) 06/23/18 05:04 BUN 14 mg/dl (7-17) 06/23/18 05:04 Creatinine 0.6 mg/dl (0.7-1.2) L 06/23/18 05:04 Est GFR ( Amer) > 60 06/23/18 05:04 Est GFR (Non-Af Amer) > 60 06/23/18 05:04 POC Glucose (mg/dL) 117 mg/dL (65-110) H 06/22/18 10:58 Random Glucose 100 mg/dL (65-105) 06/23/18 05:04 Calcium 8.6 mg/dL (8.4-10.2) 06/23/18 05:04 Phosphorus 3.1 mg/dl (2.5-4.5) 06/22/18 12:00 Magnesium 2.1 MG/DL (1.6-2.3) 06/22/18 12:00 Total Bilirubin 0.7 mg/dl (0.2-1.3) 06/22/18 12:00 AST 33 U/L (14-36) 06/22/18 12:00 ALT 28 U/L (9-52) 06/22/18 12:00 Alkaline Phosphatase 76 U/L (38-126) 06/22/18 12:00 Troponin I < 0.0120 ng/mL (0.00-0.120) 06/22/18 12:00 NT-Pro-B Natriuret Pep 112 pg/ml (0-900) 06/22/18 12:00 Total Protein 6.8 G/DL (6.3-8.2) 06/22/18 12:00 Albumin 4.1 g/dL (3.5-5.0) 06/22/18 12:00 Globulin 2.7 gm/dL (2.2-3.9) 06/22/18 12:00 Albumin/Globulin Ratio 1.5 (1.0-2.1) 06/22/18 12:00 Urine Color Yellow (YELLOW) 06/22/18 09:40 Urine Clarity Slighty-cloudy (Clear) 06/22/18 09:40 Urine pH 7.0 (5.0-8.0) 06/22/18 09:40 Ur Specific Niles 1.012 (1.003-1.030) 06/22/18 09:40 Urine Protein Negative mg/dL (NEGATIVE) 06/22/18 09:40 Urine Glucose (UA) Neg mg/dL (NEGATIVE) 06/22/18 09:40 Urine Ketones Negative mg/dL (NEGATIVE) 06/22/18 09:40 Urine Blood Negative (NEGATIVE) 06/22/18 09:40 Urine Nitrate Negative (NEGATIVE) 06/22/18 09:40 Urine Bilirubin Negative (NEGATIVE) 06/22/18 09:40 Urine Urobilinogen 0.2-1.0 mg/dL (0.2-1.0) 06/22/18 09:40 Ur Leukocyte Esterase Mod Ammy/uL (Negative) 06/22/18 09:40 Urine RBC (Auto) < 1 /hpf (0-3) 06/22/18 09:40 Urine Microscopic WBC 13 /hpf (0-5) H 06/22/18 09:40 Ur Squamous Epith Cells 1 /hpf (0-5) 06/22/18 09:40 Urine Bacteria Few (<OCC) H 06/22/18 09:40 - Hospital Course Hospital Course: 73 yr old F with PMHx HTN admitted for presyncopal episode. EKG showed normal sinus rhythm with occasional PVC's. Head CT was showed small chronic infarct of left parietal occipital junction, negative for acute intracranial abnormality. Carotid doppler was normal with less than 50% bilateral stenosis. Patients CBC, CMP and vital remained normal. Patient did not experience any recurrence of presyncope and was discharged stable with addition of Plavix 75mg PO QD to home medicaitions. Patient will follow up results of echocardiogram in clinic with her PMD. - Date & Time of H&P Date of H&P: 06/22/18 Time of H&P: 15:29 Discharge Exam - Head Exam Head Exam: ATRAUMATIC, NORMAL INSPECTION, NORMOCEPHALIC - Eye Exam Eye Exam: EOMI - ENT Exam ENT Exam: Mucous Membranes Moist - Respiratory Exam Respiratory Exam: NORMAL BREATHING PATTERN - Cardiovascular Exam Cardiovascular Exam: REGULAR RHYTHM, +S1, +S2 - GI/Abdominal Exam GI & Abdominal Exam: Normal Bowel Sounds, Soft. absent: Tenderness - Extremities Exam Extremities exam: full ROM - Neurological Exam Neurological exam: Alert, CN II-XII Intact, Oriented x3 - Psychiatric Exam Psychiatric exam: Normal Affect, Normal Mood - Skin Skin Exam: Dry, Normal Color, Warm Discharge Plan - Discharge Medications Prescriptions: Clopidogrel [Plavix] 75 mg PO DAILY #30 tab - Follow Up Plan Condition: STABLE Disposition: HOME/ ROUTINE Instructions: Syncope (DC), Syncope (GEN) Additional Instructions: -Follow up with your primary care doctor at [facility] [phone] -take medications as prescribed, resume your home medications
== END 2018-06-23 12:30 | disposition home or self-care (01) ==
LOC: H.ER 10:47 → H.ERHOLD 14:12 → H.TEL 16:23
PROVIDERS: ADMIT Student in an Organized Health Care Education/Training Program; ATTEND Student in an Organized Health Care Education/Training Program
DX: R55 Syncope and collapse (principal); E78.00 Pure hypercholesterolemia, unspecified; I10 Essential (primary) hypertension; I49.3 Ventricular premature depolarization; Z86.73 Personal history of transient ischemic attack (TIA), and cerebral infarction without residual deficits; R73.03 Prediabetes
CPT/HCPCS: 36415; 70450; 71045; 80048; 80053; 81003; 82948; 83735; 83880; 84100; 84484; 85025; 85027; 85610; 85730; 93005; 93306; 93880; 99285; G0378